=== PATIENT | female | born 2000 | race Caucasian/White ===

== ENCOUNTER 2018-08-20 09:48 | Emergency (ER) | payer OTHER ==
[2018-08-20 09:54] VITALS: BP 124/74
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
== END 2018-08-20 10:45 | disposition home or self-care (01) ==
LOC: ER 09:48
DX: S16.1XXA Strain of muscle, fascia and tendon at neck level, initial encounter (principal); R51 Headache; V43.52XA Car driver injured in collision with other type car in traffic accident, initial encounter
CPT/HCPCS: 99283

== ENCOUNTER 2019-09-01 08:27 | Emergency (ER) | payer MEDICAID, OTHER ==
--- NOTE | 2019-09-01 09:07 | ER Document Report ---
ED General - General Chief Complaint: OB Problem (<20wks) Stated Complaint: ABDOMINAL CRAMPING Time Seen by Provider: 09/01/19 08:49 TRAVEL OUTSIDE OF THE [place] IN LAST 30 DAYS: No - HPI Notes: 19-year-old female 2 para 1 at 14 weeks EGA followed by health department presenting with a chief complaint of light vaginal spotting and mild cramping starting during the night. Both symptoms have subsequently resolved. She denies fever. She denies vaginal discharge. Denies dysuria. No nausea vomiting. She has a healthy 1-year-old child at home and reports no problems with first . The patient has recently treated for an ear infection and remains on amoxicillin. She denies any other symptoms currently. No prior surgery and is in excellent general health. - Related Data Allergies/Adverse Reactions: No Known Allergies Allergy (Verified 09/01/19 08:35) Home Medications: amoxicillin- ear infection Past Medical History - General Information source: Patient, Friend - Social History Smoking Status: Never Smoker Chew tobacco use (# tins/day): No Frequency of alcohol use: None Drug Abuse: None Family History: Reviewed & Not Pertinent Patient has suicidal ideation: No Patient has homicidal ideation: No Renal/ Medical History: Denies: Hx Peritoneal Dialysis Past Surgical History: Reports: Hx Tonsillectomy Review of Systems - Review of Systems Notes: Constitutional: Negative for fever. HENT: Negative for sore throat. Eyes: Negative for visual changes. Cardiovascular: Negative for chest pain. Respiratory: Negative for shortness of breath. Gastrointestinal: Negative for abdominal pain, vomiting or diarrhea. Genitourinary: As per HPI. Musculoskeletal: Negative for back pain. Skin: Negative for rash. Neurological: Negative for headaches, weakness or numbness. 10 point ROS negative except as marked above and in HPI. Physical Exam - Vital signs Vitals: Temp Pulse Resp BP Pulse Ox 97.4 F 80 16 122/71 99 09/01/19 08:30 09/01/19 08:30 09/01/19 08:30 09/01/19 08:30 09/01/19 08:30 - Notes Notes: GENERAL: Well-developed well-nourished appearing in no acute distress. SKIN: Good turgor no rashes. HEAD: Normocephalic atraumatic. EYES: PERRLA. EOMI. Conjunctivae and sclerae clear. EARS: CANALS AND TMS CLEAR. NOSE: CLEAR. MOUTH: Moist mucosa. Good dentition. No stridor or edema. No drooling. NECK: Supple. No masses or thyromegaly. No adenopathy. Carotids 2+ without bruits. No JVD. BACK: Symmetrical without tenderness. CHEST: Respirations unlabored. Breath sounds clear and symmetrical. HEART: Regular rhythm. No murmur gallop or rub. ABDOMEN: Soft nontender without masses, organomegaly or rebound. Bowel sounds normally active. No bruits. Pelvic: External genitalia normal. Cervical osseous closed. Minimal irritation of the cervix with no active bleeding. Small amount of white vaginal discharge. Bimanual exam shows no tenderness. Uterus is enlarged to about 14 weeks size. No adnexal masses. EXTREMITIES: No edema. No calf tenderness. Cap refill less than 1.5 seconds. Dorsalis pedis and posterior tibial pulses 3+ and symmetrical. NEUROLOGICAL: GCS 15. Alert and oriented x3. Normal gait. Fluent speech. Cranial nerves II through XII intact. Sensorimotor and cerebellar normal. Normal tone. PSYCHIATRIC: Appropriate affect. Course - Re-evaluation Re-evalutation: 09/01/19 09:06 Pelvic obstetrical ultrasound has been initially requested. We will check a urinalysis and patient does not know her blood type so we will do RhoGam work- up. Anticipate pelvic exam following ultrasound. 09/01/19 10:52 Pelvic ultrasound per radiologist indicated viable IUP and gestational age consistent with dates reported by patient. No gross abnormalities appreciated. Patient is Rh+. Specimens have been submitted for GC/chlamydia and wet mount. Pelvic exam remarkable for mild irritation of the cervix and small amount of white vaginal discharge. 09/01/19 11:31 KEVIN prep negative. Wet mount consistent with bacterial vaginosis. GC/chlamydia screening results remain pending. Patient will be treated for bacterial vaginosis. I have discussed this with her and her partner. She will follow-up outpatient with health department clinic. She is given first trimester vaginal bleeding instructions. - Vital Signs Vital signs: Temp Pulse Resp BP Pulse Ox 97.4 F 80 16 122/71 99 09/01/19 08:35 09/01/19 08:30 09/01/19 08:35 09/01/19 08:30 09/01/19 08:35 - Laboratory Result Diagrams: 09/01/19 09:30 Laboratory results interpreted by me: 09/01/19 08:58 Urine Blood SMALL H Leukocyte Esterase Rfl LARGE H Urine HCG, Qual POSITIVE H Discharge - Discharge Clinical Impression: Vaginal bleeding, Intrauterine , Bacterial vaginosis in Condition: Stable Disposition: HOME, SELF-CARE Additional Instructions: Bleeding During Early You have been evaluated for passing blood while . While we take this symptom very seriously, most women with your degree of bleeding will go on to have a perfectly normal baby. At this time, there is no indication that a miscarriage will occur. (A miscarriage occurs when the fetus is abnormal. There is no medicine or treatment to prevent it.) A more serious cause of bleeding is tubal . An ultrasound can show whether the is in the uterus or in the tube. Sometimes in early , no fetus is seen. In this case, careful follow-up, including repeat blood tests and repeat ultrasound, is necessary. You should rest in bed until the symptoms have resolved. Do not douche or have sex for at least a week, or until OK'd by the doctor. Don't use tampons. Call the doctor or return for re-examination if there is an increase in bleeding or cramping, extreme weakness, fainting, new abdominal pain, fever, or passage of tissue. Do not use tampons. Do not engage in sexual intercourse until rechecked by your doctor. Vaginosis, Bacterial Your exam shows you have bacterial vaginosis. This condition is due to an overgrowth of bacteria in the vagina. Symptoms may include vaginal itching or pain, a smelly discharge, and sometimes burning with urination. Normally this is not transmitted by sexual contact. Vaginosis can be treated with oral or topical antibiotics. Metronidazole (Flagyl) pills are usually effective. Topical vaginal creams include Cleocin and Metro-Gel. You should avoid sexual contact until your symptoms are all better. Call the doctor if you develop pelvic pain, fever, or problems with urination, or if you don't improve as expected. Return here as needed for new or worsening symptoms: Pain that is worsening or unimproved Uncontrolled vomiting High fever or shaking chills Overall worsening Increased bleeding or cramping Take prescribed medication as directed. Follow-up with health department OB clinic. Prescriptions: Metronidazole [Flagyl 500 mg Tablet] 500 mg PO BID 7 Days #14 tablet Referrals: [facility] [NO LOCAL MD] - Follow up as needed
[2019-09-01 09:17] LABS: APPEARANCE,URINE CLOUDY; BILIRUBIN,URINE NEGATIVE (NEGATIVE); COLOR,URINE YELLOW; GLUCOSE, URINE NEGATIVE (NEGATIVE); KETONES,URINE NEGATIVE (NEGATIVE); PROTEIN,URINE NEGATIVE (NEGATIVE); URINE SPECIFIC GRAVITY 1.014; UROBILINOGEN,URINE NEGATIVE mg/dL (<2.0)
--- NOTE | 2019-09-01 09:36 | RADIOLOGY REPORT (SQ) ---
EXAM DESCRIPTION: U/S OB 14+ TRNABD 1GES W/O DOP COMPLETED DATE/TIME: 09/01/2019 9:27 am REASON FOR STUDY: vaginal bleeding/cramping 14 wk. EGA COMPARISON: None. TECHNIQUE: Limited transabdominal grayscale ultrasound for evaluation of specific requested obstetri heidy parameters. LIMITATIONS: None. FINDINGS: CERVICAL LENGTH: 3.7 cm Closed. L BROADCAST SYSTEMS ENGINEER: 3.4 cm. FHR: 157 beats per minute. PRESENTATION: Transverse PLACENTA: Not assessed ANATOMY: Not assessed OTHER: Estimated gestational age 14 weeks 5 days. YOVANI 02/25/2020 IMPRESSION: Limited OBSTETRICAL ULTRASOUND WITH MEASURED PARAMETERS DELINEATED ABOVE. Trimester of : Second trimester - 13 weeks 1 day to 27 weeks 6 days. TECHNICAL DOCUMENTATION: JOB ID: [id number] [employer]- All Rights Reserved Reading location - IP/workstation name: [email or web address]
[2019-09-01 09:47] LABS: ABSOLUTE LYMPHOCYTES (AUTO) 1.4 10^3/uL (0.5-4.7); ABSOLUTE MONOCYTES (AUTO) 0.5 10^3/uL (0.1-1.4); ABSOLUTE NEUT (AUTO) 5.7 10^3/uL (1.7-8.2); BASOPHILS % (AUTO) 0.4 % (0-2); EOSINOPHILS % (AUTO) 0.6 % (0-6); HEMATOCRIT 39.5 % (36.0-47.0); MEAN CORPUSCULAR HEMOGLOBIN 31.9 pg (27.0-33.4); MEAN CORPUSCULAR HGB CONC 35.5 g/dL (32.0-36.0); MEAN CORPUSCULAR VOLUME 90 fl (80-97); MONOCYTES % (AUTO) 6.9 % (3-13); PLATELET COUNT 213 10^3/uL (150-450); RED CELL DISTRIBUTION WIDTH 13.9 % (11.5-14.0); SEGMENTED NEUTROPHILS % (AUTO) 74.1 % (42-78); TOTAL CELLS COUNTED % (AUTO) 100 %; WHITE BLOOD COUNT 7.7 10^3/uL (4.0-10.5)
[2019-09-01 11:09] LABS: BACTERIA (WET MOUNT) 3+ BACTERIA SEEN; T.VAGINALIS (WET MOUNT) NO TRICHOMONAS SEEN; WBCS (WET MOUNT) 2+ WBCS SEEN; YEAST (WET MOUNT) YEAST SEEN
[2019-09-01 11:52] VITALS: BP 105/66
[2019-09-01 12:33] LABS: CHLAM PCR NOT DETECTED (NOT DETECT)
== END 2019-09-01 11:50 | disposition home or self-care (01) ==
LOC: ER 08:27
DX: O23.592 Infection of other part of genital tract in pregnancy, second trimester (principal); B96.89 Other specified bacterial agents as the cause of diseases classified elsewhere; O20.9 Hemorrhage in early pregnancy, unspecified; O26.892 Other specified pregnancy related conditions, second trimester; H66.90 Otitis media, unspecified, unspecified ear; Z3A.14 14 weeks gestation of pregnancy
CPT/HCPCS: 36415; 76805; 81001; 81025; 85025; 86900; 86901; 87210; 87491; 87591; 99284

== ENCOUNTER 2020-03-05 10:03 | Inpatient (IN) | payer MEDICAID ==
[2020-03-05] MEDS ORDERED: RINGERS SOLUTION,LACTATED 1,000 ML IV PRN (11:27)
[2020-03-05] MEDS ORDERED: OXYTOCIN/0.9 % SODIUM CHLORIDE 30 UNIT/500 ML RTUINJ IV PRN ×2 (11:27→19:04)
[2020-03-05] MEDS ORDERED: RINGERS SOLUTION,LACTATED 1,000 ML IV ONE (11:27)
[2020-03-05 11:39] LABS: APPEARANCE,URINE SLIGHTLY-CLOUDY; BILIRUBIN,URINE NEGATIVE (NEGATIVE); COLOR,URINE YELLOW; GLUCOSE, URINE NEGATIVE (NEGATIVE); KETONES,URINE NEGATIVE (NEGATIVE); LEUKOCYTE ESTERASE,URINE LARGE (NEGATIVE); NITRITE,URINE NEGATIVE (NEGATIVE); PROTEIN,URINE NEGATIVE (NEGATIVE); URINE SPECIFIC GRAVITY 1.017; UROBILINOGEN,URINE NEGATIVE mg/dL (<2.0)
[2020-03-05 11:56] LABS: URINE AMPHETAMINES SCREEN NEGATIVE; URINE BARBITURATES SCREEN NEGATIVE; URINE BENZODIAZEPINES SCREEN NEGATIVE; URINE COCAINE SCREEN NEGATIVE; URINE MARIJUANA (THC) SCREEN NEGATIVE; URINE METHADONE SCREEN NEGATIVE; URINE PHENCYCLIDINE SCREEN NEGATIVE
[2020-03-05] MEDS ORDERED: LIDOCAINE 1% INJ-PF (10 MG/ML) 30 ML SDV ONE (12:04)
[2020-03-05] MEDS ORDERED: OXYTOCIN 10 UNIT/ML VIAL ONE (12:04)
[2020-03-05] MEDS ORDERED: MISOPROSTOL 0.2 MG TABLET ONE (12:04)
[2020-03-05] MEDS ORDERED: OXYTOCIN/0.9 % SODIUM CHLORIDE 30 UNIT/500 ML RTUINJ ONE (12:04)
[2020-03-05 12:27] LABS: ABSOLUTE LYMPHOCYTES (AUTO) 1.4 10^3/uL (0.5-4.7); ABSOLUTE MONOCYTES (AUTO) 0.6 10^3/uL (0.1-1.4); ABSOLUTE NEUT (AUTO) 7.7 10^3/uL (1.7-8.2); BASOPHILS % (AUTO) 0.2 % (0-2); EOSINOPHILS % (AUTO) 0.2 % (0-6); HEMATOCRIT 34.6 % (36.0-47.0); HEMOGLOBIN 11.8 g/dL (12.0-15.5); LYMPHOCYTES % (AUTO) 14.2 % (13-45); MEAN CORPUSCULAR HEMOGLOBIN 29.4 pg (27.0-33.4); MEAN CORPUSCULAR VOLUME 87 fl (80-97); MONOCYTES % (AUTO) 6.6 % (3-13); PLATELET COUNT 214 10^3/uL (150-450); RED CELL DISTRIBUTION WIDTH 13.8 % (11.5-14.0); SEGMENTED NEUTROPHILS % (AUTO) 78.8 % (42-78); TOTAL CELLS COUNTED % (AUTO) 100 %; WHITE BLOOD COUNT 9.8 10^3/uL (4.0-10.5)
--- NOTE | 2020-03-05 15:56 | Admission Physical ---
Datetime Report Generated by CPN: 03/05/2020 15:56 CURRENT ADMISSION Chief Complaint: Scheduled Induction of Labor Indication for Induction: Post Dates Admit Impression : Term, Intrauterine Admit Plan: Admit to Unit; Initiate Labor Induction Protocol ALLERGIES Medication Allergies: No Medication Allergies: No Known Allergies (09/01/2019) Latex: No Latex Allergies OBSTETRICAL HISTORY EDC: 02/26/2020 00:00 : 2 Para: 1 Term: 1 : 0 SAB: 0 IAB: 0 Ectopic: 0 Livin Cesareans: 0 VBACs: 0 Multiple Births: 0 Gestational Diabetes: No Rh Sensitization: No Incompetent Cervix: No CHRIS: No Infertility: No ART Treatment: No Uterine Anomaly: No IUGR: No Hx Previous C/S: No Macrosomia: No Hx Loss/Stillborn: No PIH: No Hx : No Placenta Previa/Abruption: No Depression/PP Depression: No PTL/PROM: No Post Hemorrhage: No Current Procedures: Ultrasound Obstetrical History Comments: G1- 39.4wks viable baby boy G2- Current SEE RECORDS Alcohol: No Marijuana : No Cocaine: No Other Illicit Drugs: No Cigarettes: Never Smoker. 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 Surgery: No Heart Disease: No Hosp/Surgery: Yes Autoimmune Disorder: No Anesthetic Complications: No Kidney Disease: No Abnormal Pap Smear: No Neuro/Epilepsy: No Psychiatric Disorders: No Other Medical Diseases: No Hepatitis/Liver Disease: No Significant Family History: No Varicosities/Phlebitis: No Trauma/Violence : No Thyroid Dysfunction: No Medical History Comments: tonsiectomy and adenoidectomy INFECTIOUS HISTORY Gonorrhea: No Genital Herpes: No Chlamydia: No Tuberculosis: No Syphilis: No Hepatitis: No HIV/AIDS Exposure: No Rash or Viral Illness: No HPV: No PHYSICAL EXAM General: Normal HEENT: Normal Neurologic: Normal Thyroid: Deferred Heart: Normal Lungs: Normal Breast: Deferred Back: Normal Abdomen: Normal Genitourinary Exam: Normal Extremities: Normal DTRs: Deferred Pelvic Type: Adequate Physical Exam Comments: pelvis proven to 8#14 Vital Signs: Reviewed; Within Normal Limits VAGINAL EXAM Dilatation: 7 Effacement: 70 Station: -1 Contraction Comments: q3 mins FETUS A EGA: 41.1 Monitoring: External US FHR- Baseline: 135 Variability: Moderate 6-25bpm Accelerations: 15X15 Decelerations: None Estimated Weight (gm): 3800 Presentation: Vertex Admit Comment: at 41w1d here for IOL, pitocin infusing. AROM for clear fluid. pt wants epidural, IV bolus started. P: continue pitocin IOL, anticipate PLANS FOR LABOR AND DELIVERY Labor and Delivery: None Pain Management: Epidural Feeding Preference: Both Benefit of Breast Feed Discussed: Yes Circumcision: Yes INFORMED CONSENT Assignment: Mary Jo Church MD Signature: with User ID: [email or web address] : with User ID: [email or web address]
[2020-03-05] MEDS ORDERED: FENTANYL/BUPIVACAINE/NS/PF 300 MCG/150 ML RTUINJ EPI ONE (16:03)
[2020-03-05] MEDS ORDERED: EPHEDRINE SULFATE INJ 50 MG/1 ML AMPULE ONE (16:03)
[2020-03-05] MEDS ORDERED: BUPIVACAINE HCL 0.25 % INJ/PF (2.5 MG/1 ML) 30 ML VIAL ONE ×2 (16:03→17:27)
[2020-03-05] MEDS ORDERED: BENZOCAINE/MENTHOL AEROSOL SPRAY 56 ML TOP PRN (19:04)
[2020-03-05] MEDS ORDERED: DIPH/PERTUSS(ACELL)/TETANUS VAC/PF 0.5 ML SYR (>=10YO) IM PRN (19:04)
[2020-03-05] MEDS ORDERED: MAGNESIUM HYDROXIDE SUSP 30 ML UDCUP PO PRN (19:04)
[2020-03-05] MEDS ORDERED: ZOLPIDEM TARTRATE 5 MG TABLET PO PRN (19:04)
[2020-03-05] MEDS ORDERED: DIPHENHYDRAMINE HCL 25 MG CAPSULE PO PRN (19:04)
[2020-03-05] MEDS ORDERED: MEASLES,MUMPS&RUBELLA VACC/PF 0.5 ML VIAL SUBCUT PRN (19:04)
[2020-03-05] MEDS ORDERED: DIBUCAINE 1% OINTMENT 28 GM TP PRN (19:04)
[2020-03-05] MEDS ORDERED: GLYCERIN/WITCH HAZEL LEAF 1 EACH MED..WIPE TP PRN (19:04)
[2020-03-05] MEDS ORDERED: NA PHOS,M-B/NA PHOS,DI-BA (ADULT) 133 ML ENEMA PR PRN (19:04)
[2020-03-05] MEDS ORDERED: PROMETHAZINE HCL 25 MG SUPP.RECT PR PRN (19:04)
[2020-03-05] MEDS ORDERED: ACETAMINOPHEN 650 MG SUPP.RECT PR PRN (19:04)
[2020-03-05] MEDS ORDERED: ACETAMINOPHEN WITH CODEINE #3 TABLET PO PRN ×2 (19:04)
[2020-03-05] MEDS ORDERED: PSEUDOEPHEDRINE HCL 30 MG TABLET PO PRN (19:04)
[2020-03-05] MEDS ORDERED: PROMETHAZINE HCL INJ 25 MG/1 ML VIAL IV PRN (19:04)
[2020-03-05] MEDS ORDERED: PROMETHAZINE HCL 25 MG TABLET PO PRN (19:04)
--- NOTE | 2020-03-05 22:20 | Delivery Summary ---
Del Sum A-C Datetime Report Generated by CPN: 03/05/2020 22:19 DELIVERY PERSONNEL DELIVERY PERSONNEL: [id number] Delivery Doctor:: Mary Jo Church MD OFFLINE CUTTER:: Barbara Villavicencio CRNA Labor and Delivery Nurse:: Joanne Roberts RNobstetrician Nurse:: Kar Andrade RN Head Waiter/Waitress Banquet/RESERVE OFFICER: Kelley Chavarria, ENGINEERING RECRUITER Additional Personnel: : Humaira Oilvas RN MATERNAL INFORMATION Delivery Anesthesia: Epidural Medications After Delivery: Pitocin 30 Units in 500ml NS/D5W Estimated Blood Loss (ml): 150 Delivery QBL: 150 Maternal Complications: None Provider Comments: Called to patients room as she was completely dilated and +3 station. Pushed through 2 contractions and delivered viable male infant over intact perineum. Nuchal x1 encountered and easily reduced. RIght hand was presenting posteriorly at time of shoulders and the posterior arm was delivered to more easily delivery the shoulders. After this the rest of the body followed easily. No lacerations. Cord clamping delayed for 30 seconds as infant was vigorous. Both infant and patient stable. Skin to skin. LABOR SUMMARY EDC: 02/26/2020 00:00 No. Babies in Womb: 1 Attempted: No Labor Anesthesia: Epidural LABOR INFORMATION Reason for Induction: Post Dates Onset of Labor: 03/05/2020 15:22 Complete Dilatation: 03/05/2020 18:44 Oxytocin: Induction Group B Beta Strep: negative Steroids Given: None Reason Steroids Not Administered: Not Applicable MEMBRANES Membranes Rupture Method: Artificial Rupture of Membranes: 03/05/2020 15:22 Length of Rupture (hr): 3.48 Amniotic Fluid Color: Clear Amniotic Fluid Amount: Moderate Amniotic Fluid Odor: Normal STAGES OF LABOR Stage 1 hr: 3 Stage 1 min: 22 Stage 2 hr: 0 Stage 2 min: 7 Stage 3 hr: 0 Stage 3 min: 6 Total Time in Labor hr: 3 Total Time in Labor min: 35 VAGINAL DELIVERY Episiotomy: None Laceration #1: None Laceration Extension #1: N/A Laceration Repair: Not Applicable Sponge Count Correct: Yes Sharps Count Correct: Yes CSECTION DELIVERY Primary Indication: N/A Secondary Indication: N/A CSection Incidence: N/A Labor: N/A Elective: N/A CSection Incision: N/A BABY A INFORMATION Delivery Date/Time: 03/05/2020 18:51 Method of Delivery: Vaginal Born in Route : No : N/A Forceps: N/A Vacuum Extraction: N/A Shoulder Dystocia : No PRESENTATION/POSITION BABY A Presentation: Cephalic Cephalic Presentation: Vertex Vertex Position: Right Occipital Anterior Breech Presentation: N/A PLACENTA INFORMATION BABY A Placenta Delivery Time : 03/05/2020 18:57 Placenta Method of Delivery: Spontaneous Placenta Status: Delivered SCORES BABY A Heart Rate 1 min: >100 bpm Resp Effort 1 min: Good Cry Reflex Irritability 1 min: Cough or Sneeze or Pulls Away Muscle Tone 1 min: Active Motion Color 1 min: Body [place], Extremities Blue Resuscitation Effort 1 min: N/A SCORE 1 MIN: 9 Heart Rate 5 min: >100 bpm Resp Effort 5 min: Good Cry Reflex Irritability 5 min: Cough or Sneeze or Pulls Away Muscle Tone 5 min: Active Motion Color 5 min: Body [place], Extremities Blue Resuscitation Effort 5 min: N/A SCORE 5 MIN: 9 INFORMATION BABY A Gestational Age at Delivery: 41.1 Gestational Status: Late Term- 41- 41.6 Weeks Infant Outcome : Liveborn Condition : Stable Sex: Male IDENTIFICATION BABY A Verification Date/Time: 03/05/2020 20:56 ID Band Number: [id number] Mother's Name Verified: Yes RN Verifying Infant: , RN/E.Normanlek, RN WEIGHT/LENGTH BABY A Birthweight (gm): 4260 Weight (lb): 9 Infant Weight (oz): 6 Length (in): 21.25 Infant Length (cm): 53.98 CORD INFORMATION BABY A No. Cord Vessels: 3 Nuchal Cord : Around Neck x1, Loose Cord Blood Taken: Yes-For Storage (Mom's Blood type +) Infant Suction: Mouth ASSESSMENT BABY A Physical Findings at Delivery: Within Normal Limits Physical Findings- Other: extra tissue by pinky finger Infant Respirations: Appears Normal Skin to Skin: Yes Hypo Splasher/ALS Called : No Care By: MMobley Transferred To: Remains with Mother SIGNATURES Signature: with User ID: [email or web address] : with User ID: [email or web address] : I was personally available for consultation and serving as supervising physician for the MLP.
[2020-03-05] MEDS: FAMOTIDINE 20 MG TABLET PO SCH (23:10)
[2020-03-05] MEDS: IBUPROFEN 800 MG TABLET PO SCH (23:10)
[2020-03-06] MEDS: IBUPROFEN 800 MG TABLET PO SCH ×4 (02:29→22:00)
[2020-03-06 06:49] LABS: HEMOGLOBIN 10.9 g/dL (12.0-15.5); MEAN CORPUSCULAR HEMOGLOBIN 30.2 pg (27.0-33.4); MEAN CORPUSCULAR HGB CONC 35.1 g/dL (32.0-36.0); MEAN CORPUSCULAR VOLUME 86 fl (80-97); PLATELET COUNT 176 10^3/uL (150-450); WHITE BLOOD COUNT 10.6 10^3/uL (4.0-10.5)
[2020-03-06] MEDS: FERROUS SULFATE 325 MG TABLET PO SCH ×2 (09:58→17:19)
[2020-03-06] MEDS: FAMOTIDINE 20 MG TABLET PO SCH ×2 (09:58→22:00)
[2020-03-06] MEDS: SENNOSIDES/DOCUSATE 8.6-50 MG 1 EACH TABLET PO SCH (09:58)
[2020-03-06] MEDS: DOCUSATE SODIUM 100 MG CAPSULE PO SCH ×2 (09:58→17:19)
[2020-03-06] MEDS: PRENATAL VITAMIN W DHA CAPSULE PO SCH (09:58)
--- NOTE | 2020-03-06 10:40 | PDOC PROGRESS REPORT ---
Subjective-OB Progress Note for:: 03/06/20 - PP Day #1, doing well, O+, Rubella immune, Physical Exam (OB) Vital Signs: Temp Pulse Resp BP Pulse Ox 97.7 F 73 18 138/78 H 98 03/06/20 07:14 03/06/20 07:14 03/06/20 07:14 03/06/20 07:14 03/06/20 07:14 Intake & Output 03/05/20 03/06/20 03/07/20 06:59 06:59 06:59 Output Total 150 Balance -150 Weight 84.6 kg - General General Appearance: Appears well, Alert In distress: None - PIH/Pre-Eclampsia DTR's: 2 + Clonus: Negative Headache: Absent Epigastric Pain: No Visual Changes: No - Lochia Lochia Amount: Scant < 10 ml Lochia Color: Rubra/Red - Abdomen Description: Soft Hernia Present: No Fundal Description: Firm, Midline Describe if Not Midline: deviated to left Fundal Height: u/u - u/2 - Respiratory Respiratory Status: No respiratory distress - Abdominal Distension: No distension Tenderness: Nontender - Genitourinary Genitourinary Note: voiding - Extremities Upper extremity: Normal inspection Lower extremities: Normal inspection - Neurological Cognition: Normal Orientation: AAOx4 - Skin Skin Temperature: Warm Skin Moisture: Dry Objective-Diagnostic Laboratory: 03/06/20 06:15 03/05/20 03/05/20 03/05/20 10:37 12:08 12:08 WBC 9.8 RBC 4.00 Hgb 11.8 L Hct 34.6 L MCV 87 MCH 29.4 MCHC 34.0 RDW 13.8 Plt Count 214 Seg Neutrophils % 78.8 H Urine Color YELLOW Urine Appearance SLIGHTLY-CLOUDY Urine pH 6.0 Ur Specific Platter 1.017 Urine Protein NEGATIVE Urine Glucose (UA) NEGATIVE Urine Ketones NEGATIVE Urine Blood NEGATIVE Urine Nitrite NEGATIVE Ur Leukocyte Esterase LARGE H Blood Type A POSITIVE Antibody Screen NEGATIVE 03/06/20 06:15 WBC 10.6 H RBC 3.60 L Hgb 10.9 L Hct 31.0 L MCV 86 MCH 30.2 MCHC 35.1 RDW 14.0 Plt Count 176 Seg Neutrophils % Urine Color Urine Appearance Urine pH Ur Specific Platter Urine Protein Urine Glucose (UA) Urine Ketones Urine Blood Urine Nitrite Ur Leukocyte Esterase Blood Type Antibody Screen Assessment and Plan(PN) - Assessment and Plan (1) (normal spontaneous vaginal delivery) Is this a current diagnosis for this admission?: Yes - Time Spent with Patient Time with patient: Less than 15 minutes Medications reviewed and adjusted accordingly: Yes - Disposition Anticipated Discharge: Home Within: within 24 hours
[2020-03-07] MEDS: IBUPROFEN 800 MG TABLET PO SCH ×2 (06:27→13:43)
[2020-03-07] MEDS: PRENATAL VITAMIN W DHA CAPSULE PO SCH (09:49)
[2020-03-07] MEDS: FAMOTIDINE 20 MG TABLET PO SCH (09:49)
[2020-03-07] MEDS: FERROUS SULFATE 325 MG TABLET PO SCH (09:49)
[2020-03-07] MEDS: DOCUSATE SODIUM 100 MG CAPSULE PO SCH (09:50)
[2020-03-07] MEDS: SENNOSIDES/DOCUSATE 8.6-50 MG 1 EACH TABLET PO SCH (09:50)
--- NOTE | 2020-03-07 10:35 | PDOC DISCHARGE SUMMARY ---
Impression - Admit/DC Date/PCP Admission Date/Primary Care Provider: 03/05/20 10:03 AUBRIE ESPINOSA MD Discharge Date: 03/07/20 - PP day #2, doing well, O+, rubella immune, breastfeed - Discharge Diagnosis (1) (normal spontaneous vaginal delivery) Is this a current diagnosis for this admission?: Yes (2) Normal course Is this a current diagnosis for this admission?: Yes - Additional Information Resuscitation Status: Full Code Discharge Diet: As Tolerated, Regular Discharge Activity: Activity As Tolerated, No Lifting Over 10 Pounds, Pelvic Rest Referrals: AUBRIE ESPINOSA MD [Primary Care Provider] - Prescriptions: Ibuprofen [Motrin 800 mg Tablet] 800 mg PO Q8 #60 tablet Home Medications: Ibuprofen [Motrin 800 mg Tablet] 800 mg PO Q8 #60 tablet 03/07/20 Vit/Dha [ Multi + Dha Capsule] 1 cap PO DAILY capsule 03/07/20 HPI Reason(s) for Admission: Onset of Labor Procedures: Ultrasound Intrapartum Procedure(s): Spontaneous Vaginal Delivery Results Laboratory Results: WBC 10.6 10^3/uL (4.0-10.5) H 03/06/20 06:15 RBC 3.60 10^6/uL (3.72-5.28) L 03/06/20 06:15 Hgb 10.9 g/dL (12.0-15.5) L 03/06/20 06:15 Hct 31.0 % (36.0-47.0) L 03/06/20 06:15 MCV 86 fl (80-97) 03/06/20 06:15 MCH 30.2 pg (27.0-33.4) 03/06/20 06:15 MCHC 35.1 g/dL (32.0-36.0) 03/06/20 06:15 RDW 14.0 % (11.5-14.0) 03/06/20 06:15 Plt Count 176 10^3/uL (150-450) 03/06/20 06:15 Lymph % (Auto) 14.2 % (13-45) 03/05/20 12:08 [place]er % (Auto) 6.6 % (3-13) 03/05/20 12:08 Eos % (Auto) 0.2 % (0-6) 03/05/20 12:08 Baso % (Auto) 0.2 % (0-2) 03/05/20 12:08 Absolute Neuts (auto) 7.7 10^3/uL (1.7-8.2) 03/05/20 12:08 Absolute Lymphs (auto) 1.4 10^3/uL (0.5-4.7) 03/05/20 12:08 Absolute Monos (auto) 0.6 10^3/uL (0.1-1.4) 03/05/20 12:08 Absolute Eos (auto) 0.0 10^3/uL (0.0-0.6) 03/05/20 12:08 Absolute Basos (auto) 0.0 10^3/uL (0.0-0.2) 03/05/20 12:08 Seg Neutrophils % 78.8 % (42-78) H 03/05/20 12:08 Urine Color YELLOW 03/05/20 10:37 Urine Appearance SLIGHTLY-CLOUDY 03/05/20 10:37 Urine pH 6.0 (5.0-9.0) 03/05/20 10:37 Ur Specific [place] 1.017 03/05/20 10:37 Urine Protein NEGATIVE mg/dL (NEGATIVE) 03/05/20 10:37 Urine Glucose (UA) NEGATIVE mg/dL (NEGATIVE) 03/05/20 10:37 Urine Ketones NEGATIVE mg/dL (NEGATIVE) 03/05/20 10:37 Urine Blood NEGATIVE (NEGATIVE) 03/05/20 10:37 Urine Nitrite NEGATIVE (NEGATIVE) 03/05/20 10:37 Urine Bilirubin NEGATIVE (NEGATIVE) 03/05/20 10:37 Urine Urobilinogen NEGATIVE mg/dL (<2.0) 03/05/20 10:37 Ur Leukocyte Esterase LARGE (NEGATIVE) H 03/05/20 10:37 Urine Ascorbic Acid NEGATIVE (NEGATIVE) 03/05/20 10:37 Urine Opiates Screen NEGATIVE 03/05/20 10:37 Urine Methadone Screen NEGATIVE 03/05/20 10:37 Ur Barbiturates Screen NEGATIVE 03/05/20 10:37 Ur Phencyclidine Scrn NEGATIVE 03/05/20 10:37 Ur Amphetamines Screen NEGATIVE 03/05/20 10:37 U Benzodiazepines Scrn NEGATIVE 03/05/20 10:37 Urine Cocaine Screen NEGATIVE 03/05/20 10:37 U Marijuana (THC) Screen NEGATIVE 03/05/20 10:37 RPR NONREACTIVE (NONREACTIVE) 03/05/20 12:08 Blood Type A POSITIVE 03/05/20 12:08 Antibody Screen NEGATIVE 03/05/20 12:08 Plan Plan of Treatment: d/c home, f/up with [facility] in 4 wks Time Spent: Less than 30 Minutes
[2020-03-07 10:37] VITALS: BP 123/75
== END 2020-03-07 14:25 | disposition home or self-care (01) | DRG 807 ==
LOC: LR 10:03 → 2S 22:02
PROVIDERS: ADMIT Obstetrics & Gynecology; ATTEND Obstetrics & Gynecology
PROC: 10E0XZZ Delivery of Products of Conception, External Approach (ICD-10-PCS; principal; 2020-03-05)
DX: O48.0 Post-term pregnancy (principal); Z37.0 Single live birth; O69.81X0 Labor and delivery complicated by cord around neck, without compression, not applicable or unspecified; Z3A.41 41 weeks gestation of pregnancy
CPT/HCPCS: 1967; 36415; 80307; 81005; 85025; 85027; 86592; 86850; 86900; 86901; J2590; J3010; J3490